=== PATIENT | female | born 1975 | race Caucasian/White ===

== ENCOUNTER 2023-02-16 15:42 | Emergency (ER) | payer MEDICAID ==
[~2023-02-16] VITALS: Ht 157.5 cm; Wt 83.5 kg
--- NOTE | 2023-02-16 15:59 | NUR ---
Pt seen by MD for Bedside Eval. Safety measures in place. Will continue to monitor.
[2023-02-16] MEDS ORDERED: diphenhydrAMINE 50 MG/1 ML VIAL IV ONE (16:30)
[2023-02-16] MEDS ORDERED: METOCLOPRAMIDE HCL 10 MG/2 ML VIAL IV ONE (16:30)
[2023-02-16] MEDS ORDERED: IV NORMAL SALINE 1000 ML BAG IV ONE (16:30)
[2023-02-16] MEDS ORDERED: ACETAMINOPHEN ES 500 MG TABLET PO ONE (16:30)
[2023-02-16 16:32] LABS: HEMATOCRIT 39.1 % (31.2-41.9); MEAN CORPUSCULAR HEMOGLOBIN 27.5 uug (24.7-32.8); PLATELET COUNT (AUTO) 285 K/uL (179-408)
[2023-02-16 16:40] LABS: *BILIRUBIN,URIN 2+ (NEGATIVE); *BLOOD, URINE NEGATIVE (NEGATIVE); *CLARITY,URINE SLIGHTLY CLOUDY (CLEAR); *COLOR,URINE YELLOW (YELLOW); *KETONES,URINE 1+ (NEGATIVE); LEUKOCYTE ESTERASE ,URINE TRACE (NEGATIVE); NITRITE, URINE NEGATIVE (NEGATIVE); UGLUCOSE NEGATIVE (NEGATIVE)
[2023-02-16 16:41] LABS: CREATININE 0.7 mg/dL (0.6-1.3); POTASSIUM 3.6 mmol/L (3.5-5.1)
[2023-02-16 16:42] LABS: *URINE HCG, QUAL NEG (NEGATIVE)
[2023-02-16] MEDS ORDERED: IOHEXOL 350 100 ML INFUS..BTL ONE (16:49)
[2023-02-16] MEDS ORDERED: SWABABLE VALVE TRANSFER SET EA MC ONE (16:49)
[2023-02-16] MEDS ORDERED: IV NORMAL SALINE 250 ML IV ONE (16:49)
[2023-02-16] MEDS ORDERED: diphenhydrAMINE 50 MG/1 ML VIAL ONE (16:54)
[2023-02-16] MEDS ORDERED: ACETAMINOPHEN ES 500 MG TABLET ONE (16:54)
[2023-02-16] MEDS ORDERED: METOCLOPRAMIDE HCL 10 MG/2 ML VIAL ONE (16:55)
[2023-02-16 18:18] LABS: BACTERIA,URINE FEW /HPF (NONE SEEN); RBC,URINE NONE SEEN /HPF (0-3); SQUAMOUS EPITHELIAL CELL,UR MODERATE /HPF (NONE SEEN); WBC,URINE 0-3 /HPF (0-3)
[2023-02-16 18:19] LABS: CALCIUM OXALATE CRYSTALS,UR RARE /HPF (NONE SEEN); MUCUS,URINE FEW /LPF (0-FEW)
[2023-02-16] MEDS ORDERED: IBUP-1955 PO (18:26)
[2023-02-16] MEDS ORDERED: KETOROLAC TROMETHAMINE 15 MG INJ IVP ONE (18:30)
[2023-02-16] MEDS ORDERED: KETOROLAC TROMETHAMINE 15 MG INJ ONE (18:39)
--- NOTE | 2023-02-16 19:16 | NUR ---
Patient discharged to home in stable condition. Written and verbal after care instructions given. Patient verbalizes understanding of instructions. Stressed follow up or return to ER for worsening s/s. Patient walked out with steady gait.
[2023-02-16 19:21] VITALS: BP 145/85
== END 2023-02-16 19:16 | disposition home or self-care (01) ==
LOC: ER 15:42
DX: R51.9 Headache, unspecified (principal); M79.10 Myalgia, unspecified site; R07.89 Other chest pain; Z20.822 Contact with and (suspected) exposure to COVID-19
CPT/HCPCS: 99285; 70496; 96374; 96375; 96361; 87426; 80048; 81001; 84703; 85025; 36415; 93005; 70498; J1200; J1885; J2765; Q9967; J7040; 70450; A4663; A9150